=== PATIENT | female | born 1960 | race Caucasian/White ===

== ENCOUNTER 2017-08-29 09:11 | Emergency (ER) | END 2017-08-29 11:13 | disposition home or self-care (01) ==

== ENCOUNTER 2017-10-19 08:53 | Emergency (ER) | END 2017-10-19 12:32 | disposition home or self-care (01) ==

== ENCOUNTER 2017-11-02 12:58 | Emergency (ER) | END 2017-11-02 15:04 | disposition home or self-care (01) ==

== ENCOUNTER 2017-11-03 21:31 | Emergency (ER) | END 2017-11-04 02:05 | disposition home or self-care (01) ==

== ENCOUNTER 2017-11-12 16:19 | Emergency (ER) | END 2017-11-12 22:02 | disposition home or self-care (01) ==

== ENCOUNTER 2017-11-30 08:54 | Emergency (ER) | END 2017-11-30 10:53 | disposition home or self-care (01) ==

== ENCOUNTER 2018-02-19 07:35 | Emergency (ER) | END 2018-02-19 11:03 | disposition home or self-care (01) ==

== ENCOUNTER 2018-04-09 18:57 | Emergency (ER) | payer MEDICAID ==
[~2018-04-09] VITALS: Wt 71.0 kg
[~2018-04-09 18:57] MED LIST: ALBU18HF INHALATION; BECL10.6 IH; BENZ1LOZ52 MM; CYCL10TA7 PO; FAMO-96 PO; GUAI-637 PO; HYDR-4011 PO; IBUP-1542 PO; NAPR-985 PO; NITR-58 PO; ONDA4TAB8 PO
[2018-04-09 19:07] VITALS: BP 156/70; PULSE 90; RESP 18
[2018-04-09] MEDS ORDERED: HYDROCODONE/APAP (5/325) TAB PO ONE (21:00)
--- NOTE | 2018-04-09 21:00 | ERD ---
ER Documentation Chief Complaint Chief Complaint R ARM, SHOULDER PAIN, HEAD PAIN S/P FALL IN SHOWER HPI This is a 57-year-old female with a history of GERD who presents ED with right anterior shoulder pain status post trip and fall in shower earlier today. Patient states that when she slipped in the shower she struck her right shoulder and hit her head. Patient denies any loss of consciousness with this event. Patient admits to mild headache that has been gradual in onset not the worst headache of her life. Patient states that she is not concerned about the heada vadim as it is very mild and is almost resolved. Patient is most concerned about her right shoulder. Patient admits to painful range of motion and decreased range of motion. Denies tingling, numbness, lack sensation, blurry vision, change in vision, confusion, fever, chills and other symptoms. No blood thinner use ROS All systems reviewed and are negative except as per history of present illness. Medications Home Meds Active Scripts Benzocaine/Menthol* (Cepacol* Sore Throat Lozenges) 1 Each Lozenge, 1 EACH MM q2h PRN for SORE THROAT, #20 LOZENGE Prov:HALEIGH TOBAR NP 02/19/18 Guaifenesin* (Robitussin*) 100 Mg/5 Ml Syrup, 200 MG PO Q4H PRN for COUGH, #120 ML Prov:HALEIGH TOBAR NP 02/19/18 Albuterol Sulfate* (Ventolin HFA*) 18 Gm Hfa.aer.ad, 2 PUFF INHALATION Q4H, #1 INHALER Prov:HALEIGH TOBAR NP 02/19/18 Beclomethasone Dipropionate (Qvar Redihaler (40 MCG)) 10.6 Gm Hfa.aeroba, 1 GM I H Q12, #1 INH Prov:HALEIGH TOBAR NP 02/19/18 Hydrocodone/Acetaminophen (Barclay 5-325 Tablet) 1 Each Tablet, 1 TAB PO Q6H PRN for PAIN, #10 TAB Prov:ROSY TANNER DO 11/30/17 Nitrofurantoin Monohyd Macrocr* (Macrobid*) 100 Mg Capsr, 100 MG PO BID for 7 Days, #14 CAP Prov:CALLUM TANG MD 11/14/17 Hydrocodone/Acetaminophen (Barclay 5-325 Tablet) 1 Each Tablet, 1 TAB PO Q6H PRN for PAIN, #10 TAB Prov:MALLORIE HWANG MD 11/12/17 Hydrocodone/Acetaminophen (Barclay 5-325 Tablet) 1 Each Tablet, 1 TAB PO Q6H PRN for PAIN, #10 TAB Prov:PATRIZIA AUSTIN PA-C 11/04/17 Cyclobenzaprine Hcl* (Cyclobenzaprine Hcl*) 10 Mg Tablet, 10 MG PO TID, #15 TAB Prov:HUMBERTO RUDOLPH PA-C 11/02/17 Naproxen* (Naprosyn*) 500 Mg Tablet, 500 MG PO BID PRN for PAIN AND/OR I NFLAMMATION, #30 TAB Prov:HUMBERTO RUDOLPH PA-C 11/02/17 Hydrocodone/Acetaminophen (Barclay 5-325 Tablet) 1 Each Tablet, 1 TAB PO Q6H PRN for PAIN, #7 TAB Prov:HUMBERTO RUDOLPH PA-C 11/02/17 Ondansetron Hcl* (Zofran*) 4 Mg Tablet, 4 MG PO Q8H PRN for NAUSEA AND/OR VOMITING, #30 TAB Prov:NARESH CONROY 10/19/17 Famotidine* (Pepcid*) 20 Mg Tablet, 20 MG PO DAILY for 30 Days, TAB Prov:NICKOLASILANARESH OSORIO F 10/19/17 Hydrocodone/Acetaminophen (Barclay 5-325 Tablet) 1 Each Tablet, 1 TAB PO Q6H PRN for PAIN, #20 TAB Prov:NARESH CONROY 10/19/17 Hydrocodone/Acetaminophen (Barclay 5-325 Tablet) 1 Each Tablet, 1 TAB PO Q6H PRN for PAIN, #12 TAB Prov:LISA BAKER PA-C 08/29/17 Ibuprofen* (Motrin*) 600 Mg Tab, 600 MG PO Q6, #30 TAB Prov:LISA BAKER PA-C 08/29/17 Allergies Allergies: Coded Allergies: No Known Allergy (Unverified , 02/19/18) PMhx/Soc History of Surgery: Yes (Hysterectomy, Bladder SX, Lymphoma SX) Anesthesia Reaction: No Hx Respiratory Disorders: Yes (asthma) Hx Miscellaneous Medical Probl: Yes (LUPUS,INCONTINENCE,LYMPHOMA) Hx Alcohol Use: Yes (occasional) Hx Substance Use: No Hx Tobacco Use: No FmHx Family History: No diabetes Physical Exam Vitals Vital Signs Date Temp Pulse Resp B/P (MAP) Pulse Ox O2 O2 Flow FiO2 Time Delivery Rate 04/09/18 98.7 90 18 156/70 99 19:07 (98) Physical Exam Physical Exam Vitals signs: Reviewed by me. General: Well developed, well nourished, in no acute distress. Patient is awake and alert. Head: Normocephalic, atraumatic. Eyes: Normal conjunctiva, Pupils PERRLA, EOM intact grossly ENT: Pharynx is clear, Moist mucous membranes, external ears, nose and mouth normal Neck: Supple, no masses, lymphadenopathy or JVD Respiratory: Clear to auscultation bilaterally with no wheezing, rhonchi, rales, no distress Cardiovascular: RRR, no murmurs, rubs, or gallops MSK: No edema, no unilateral swelling, 5/5 strength Upper Extremity -right Skin: No laceration, or evidence of external trauma Compartments: Soft Motor: Decreased range of motion with shoulder abduction full active range of motion elbow/wrist/hand Sensation: Intact shoulder/pinky/middle finger/thumb web space Bones: Tender to palpation along right anterior shoulder nontender /elbow/forearm/wrist/hand Snuffbox: Nontender Joints: No effusion Pulses/Perfusion: 2+ radial, Capillary refill < 2 seconds Neurologic: Alert and oriented, moving all extremities, normal speech, no focal weakness, no cerebellar signs. Normal mentation Neuro: M/S: Alert and oriented Face: EOMI, face and pharynx with normal sensation and function Motor: Normal strength throughout Sensation: Normal sensation throughout Speech: Normal Cerebel: Normal coordination Normal gait Normal finger to nose DTR: 2+ and symmetric upper/lower extremities Cranial nerves II through XII intact bilaterally Skin: warm and dry, No rash Psych: Normal mood Results 24 hrs Current Medications Medications Dose Sig/Flower Start Time Status Last (Trade) Ordered Route PRN Stop Time Admin Dose Reason Admin 1 tab ONCE ONCE 04/09/18 DC 04/09/18 Acetaminophen PO 21:00 04/09/18 21:15 / 21:01 Hydrocodone Bitart (Barclay (5/325)) Procedures/MDM EKG, MONITORS, & DIAGNOSTIC IMAGING: [place] [id number] Radiology Main Line: [phone] DIAGNOSTIC IMAGING REPORT Patient: RONDA TYLER : 1960 Age: 57 Sex: F MR #: [id number] DOS: 04/09/182040 Ordering MD: LEI BELL PA-C Location: [facility] Room/Bed: PROCEDURE: XR right shoulder. CLINICAL INDICATION: fall and pain TECHNIQUE: 4 views of the right shoulder were performed. COMPARISON: None. FINDINGS: There is normal osseous mineralization and alignment. No acute fracture or osseous lesion is identified. Minimal degenerative changes of the AC joint. The soft tissues are unremarkable. IMPRESSION: Unremarkable right shoulder. RPTAT:AAJJ Physician Tierney Date Time Electronically viewed and signed by Physician Tierney on 04/09/2018 21:05 RF/ CC: LEI BELL PA-C [id number] ER COURSE: The patient was given Barclay The medication was well tolerated and the patient reports improvement in symptoms. The patient was stable throughout ED course. I kept the patient and/or family informed of laboratory and diagnostic imaging results throughout the emergency room course. The patient was promptly evaluated and a treatment plan was devised based on H&P and other data. This plan was discussed with the patient who agreed and had no further questions or concerns prior to discharge. MEDICAL DECISION MAKIN-year-old female presents ED with right shoulder status post trip and fall in shower earlier today. X-rays unremarkable. This is likely contusion. Advised resting and icing shoulder. History and physical examination other data not consistent with emergent processes including but not limited to fracture, dislocation, tendon rupture, ischemia, neurovascular injury, compartment syndrome, septic joint, avascular necrosis, osteomyelitis, necrotizing fasciitis, septic joint, septic arthritis, or other emergent conditions. Patient also did strike up a fall, admits to mild headache that is almost completely resolved. Normal neuro exam. Per the [place] head CT rule is unnecessary to image patient today. The patient's headache is unlikely related to serious etiology. The patient does not exhibit any clinical signs or symptoms, and has no risk factors to suggest headache etiology such as subarachnoid hemorrhage, acute vertebral or carotid dissection, intracranial mass, epidural, subdural hematoma, dural venous sinus thrombosis, giant cell arteritis, midline shift, or pseudotumor cerebri. Patient's vitals are stable and patient can be managed with close outpatient follow-up. Patient was advised to follow-up with her primary care in the next 48 hours. Return to ED with any worsening symptoms. DISPOSITION PLAN: We discussed follow up with the patient's primary care doctor within 24 to 48 hours. Patient counseled regarding my diagnostic impression and care plan. Prior to discharge all questions answered. Pt agrees with treatment plan and understands strict return precautions. Precautionary instructions provided including instructions to return to the ER if not improving or for any worsening or changing symptoms or concerns. SPECIALIST FOLLOW UP RECOMMENDED: None Patient has been advised to follow up with primary care in 1-2 days. Disclaimer: Inadvertent spelling and grammatical errors are likely due to EHR/dictation software use and do not reflect on the overall quality of patient care. Also, please note that the electronic time recorded on this note does not necessarily reflect the actual time of the patient encounter. Departure Diagnosis: Primary Impression: Injury of right shoulder Encounter type: initial encounter Qualified Codes: S49.91XA - Unspecified injury of right shoulder and upper arm, initial encounter Additional Impression: Fall from ground level Condition: Stable Patient Instructions: R.I.C.E., Shoulder Contusion [facility] Additional Instructions: Paciente aconseja volver a Departamento de urgencias inmediatamente para sntomas nuevos o que empeoran . Paciente aconseja posteriores con el PCP en 1-2 root . Paciente verbaliza la comprehensin y est de acuerdo con el tratamiento y el curso de accin. Si el paciente no tiene ninguna de atencin primaria pueden seguir con [facility] [address] [place] [address] o [facility] [address] [place] [address] LEI BELL PA-C Apr 09, 2018 21:00
[2018-04-09] MEDS ORDERED: IBUP-1542 PO (22:01)
== END 2018-04-09 22:47 | disposition home or self-care (01) ==
LOC: FTE 18:57
DX: S49.91XA Unspecified injury of right shoulder and upper arm, initial encounter (principal); J45.909 Unspecified asthma, uncomplicated; W18.2XXA Fall in (into) shower or empty bathtub, initial encounter; Y92.9 Unspecified place or not applicable
CPT/HCPCS: 73030; Z7502; Z7610

== ENCOUNTER 2018-06-26 14:57 | Emergency (ER) | payer MEDICAID ==
[~2018-06-26] VITALS: Ht 167.6 cm; Wt 66.1 kg
[2018-06-26 15:05] VITALS: Ht 167.6 cm; Wt 66.1 kg
[2018-06-26] MEDS ORDERED: ONDANSETRON 4 MG INJ IV STA (16:29)
[2018-06-26] MEDS ORDERED: morphine 4 MG/ML VIAL IV STA (16:29)
[2018-06-26] MEDS ORDERED: HYDR200T5 PO (17:27)
[2018-06-26] MEDS ORDERED: OMEP20CA16 PO (17:28)
[2018-06-26] MEDS ORDERED: BECL10.6 IH (17:28)
[2018-06-26] MEDS ORDERED: ACET325T45 PO (17:29)
[2018-06-26] MEDS ORDERED: PANT40TA3 PO (18:00)
[2018-06-26] MEDS ORDERED: ACET325T33 PO (18:00)
[2018-06-26] MEDS ORDERED: ONDA4TAB14 PO (18:00)
[2018-06-26 18:31] VITALS: BP 129/77; PULSE 76; RESP 19
--- NOTE | 2018-06-26 19:14 | ERD ---
ER Documentation Chief Complaint Chief Complaint Complains of abdominal pain with vomiting x 3 days HPI Patient is a 57-year-old female with lupus who presents with abdominal pain. She is also had nausea and vomiting. She said the symptoms for a few days. She has pain in the epigastric area and feels like she has a bloated stomach. She has pain with palpation. She has a recent diagnosis of lupus. She has right- sided shoulder pain for over 1 month after a fall. Upon review of old medical records this is the patient's ninth visit to the ER since July 2017. Review of the emergency department information exchange system shows visits to 2 separate emergency departments. ROS All systems reviewed and are negative except as per history of present illness. Medications Home Meds Active Scripts Ondansetron (Ondansetron Odt) 4 Mg Tab.rapdis, 4 MG PO Q6H PRN for NAUSEA AND/OR VOMITING, #10 TAB Prov:ORLANDO CARBAJAL MD 06/26/18 Acetaminophen* (Tylenol*) 325 Mg Tablet, 2 TAB PO Q8 PRN for PAIN AND OR ELEVATED TEMP, #20 TAB Prov:ORLANDO CARBAJAL MD 06/26/18 Pantoprazole* (Protonix*) 40 Mg Tablet., 40 MG PO DAILY, #20 TAB Prov:ORLANDO CARBAJAL MD 06/26/18 Reported Medications Acetaminophen* (Acetaminophen*) 325 Mg Tablet, 325 MG PO Q4H PRN for NEEDED, #30 TAB 06/26/18 Beclomethasone Dipropionate (Qvar Redihaler (40 MCG)) 10.6 Gm Hfa.aeroba, 10.6 GM IH DAILY, INH 06/26/18 Omeprazole* (Omeprazole*) 20 Mg Capsule.dr, 20 MG PO DAILY, #30 CAP 06/26/18 Hydroxychloroquine Sulfate* (Plaquenil*) 200 Mg Tab, 200 MG PO DAILY, TAB 06/26/18 Discontinued Scripts Ibuprofen* (Motrin*) 600 Mg Tab, 600 MG PO Q6, #30 TAB Prov:LEI BELL PA-C 04/09/18 Benzocaine/Menthol* (Cepacol* Sore Throat Lozenges) 1 Each Lozenge, 1 EACH MM q2h PRN for SORE THROAT, #20 LOZENGE Prov:HALEIGH TOBAR MANAGER HRIS 02/19/18 Guaifenesin* (Robitussin*) 100 Mg/5 Ml Syrup, 200 MG PO Q4H PRN for COUGH, #120 ML Prov:HALEIGH TOBAR MANAGER HRIS 02/19/18 Albuterol Sulfate* (Ventolin HFA*) 18 Gm Hfa.aer.ad, 2 PUFF INHALATION Q4H, #1 INHALER Prov:HALEIGH TOBAR NP 02/19/18 Beclomethasone Dipropionate (Qvar Redihaler (40 MCG)) 10.6 Gm Hfa.aeroba, 1 GM IH Q12, #1 INH Prov:HALEIGH TOBAR NP 02/19/18 Hydrocodone/Acetaminophen (Cameron 5-325 Tablet) 1 Each Tablet, 1 TAB PO Q6H PRN for PAIN, #10 TAB Prov:ROSY TANNER DO 11/30/17 Nitrofurantoin Monohyd Macrocr* (Macrobid*) 100 Mg Capsr, 100 MG PO BID for 7 Days, #14 CAP Prov:CALLUM TANG MD 11/14/17 Hydrocodone/Acetaminophen (Cameron 5-325 Tablet) 1 Each Tablet, 1 TAB PO Q6H PRN for PAIN, #10 TAB Prov:MALLORIE HWANG MD 11/12/17 Hydrocodone/Acetaminophen (Cameron 5-325 Tablet) 1 Each Tablet, 1 TAB PO Q6H PRN for PAIN, #10 TAB Prov:PATRIZIA AUSTIN PA-C 11/04/17 Cyclobenzaprine Hcl* (Cyclobenzaprine Hcl*) 10 Mg Tablet, 10 MG PO TID, #15 TAB Prov:HUMBERTO RUDOLPH PA-C 11/02/17 Naproxen* (Naprosyn*) 500 Mg Tablet, 500 MG PO BID PRN for PAIN AND/OR INFLAMMATION, #30 TAB Prov:HUMBERTO RUDOLPH PA-C 11/02/17 Hydrocodone/Acetaminophen (Cameron 5-325 Tablet) 1 Each Tablet, 1 TAB PO Q6H PRN for PAIN, #7 TAB Prov:HUMBERTO RUDOLPH PA-C 11/02/17 Ondansetron Hcl* (Zofran*) 4 Mg Tablet, 4 MG PO Q8H PRN for NAUSEA AND/OR VOMITING, #30 TAB Prov:NARESH CONROY 10/19/17 Famotidine* (Pepcid*) 20 Mg Tablet, 20 MG PO DAILY for 30 Days, TAB Prov:NARESH CONROY 10/19/17 Hydrocodone/Acetaminophen (Cameron 5-325 Tablet) 1 Each Tablet, 1 TAB PO Q6H PRN for PAIN, #20 TAB Prov:NARESH CONROY 10/19/17 Hydrocodone/Acetaminophen (Cameron 5-325 Tablet) 1 Each Tablet, 1 TAB PO Q6H PRN for PAIN, #12 TAB Prov:LISA BAKER PA-C 08/29/17 Ibuprofen* (Motrin*) 600 Mg Tab, 600 MG PO Q6, #30 TAB Prov:LISA BAKER PA-C 08/29/17 Allergies Allergies: Coded Allergies: No Known Allergy (Unverified , 06/26/18) PMhx/Soc History of Surgery: Yes (Hysterectomy, Bladder SX, Lymphoma SX) Anesthesia Reaction: No Hx Respiratory Disorders: Yes (asthma) Hx Miscellaneous Medical Probl: Yes (LUPUS,INCONTINENCE,LYMPHOMA) Hx Alcohol Use: Yes (occasional) Hx Substance Use: No Hx Tobacco Use: No Smoking Status: Never smoker FmHx Family History: diabetes Physical Exam Vitals Vital Signs Date Temp Pulse Resp B/P (MAP) Pulse Ox O2 O2 Flow FiO2 Time Delivery Rate 06/26/18 98.3 76 19 129/77 96 Room Air 18:31 (94) 06/26/18 74 19 127/97 100 Room Air 18:00 (107) 06/26/18 98.3 83 20 138/75 98 15:05 (96) Physical Exam Const: No acute distress Head: Atraumatic Eyes: Normal Conjunctiva ENT: Normal External Ears, Nose and Mouth. Neck: Full range of motion. No meningismus. Resp: Clear to auscultation bilaterally Cardio: Regular rate and rhythm, no murmurs Abd: Soft, epigastric tenderness to palpation without rebound or guarding Skin: No petechiae or rashes Back: No midline or flank tenderness Ext: No cyanosis, or edema Neur: Awake and alert Psych: Normal Mood and Affect Result Diagram: 06/26/18 1645 06/26/18 1645 Results 24 hrs Laboratory Tests Test 06/26/18 16:45 06/26/18 16:50 White Blood Count 8.1 10^3/ul Red Blood Count 5.29 10^6/ul Hemoglobin 14.3 g/dl Hematocrit 43.9 % Mean Corpuscular Volume 83.0 fl Mean Corpuscular Hemoglobin 27.0 pg Mean Corpuscular Hemoglobin Concent 32.6 g/dl Red Cell Distribution Width 13.2 % Platelet Count 346 10^3/UL Mean Platelet Volume 10.0 fl Immature Granulocytes % 0.200 % Neutrophils % 56.7 % Lymphocytes % 33.5 % Monocytes % 6.4 % Eosinophils % 2.8 % Basophils % 0.4 % Nucleated Red Blood Cells % 0.0 /100WBC Immature Granulocytes # 0.020 10^3/ul Neutrophils # 4.6 10^3/ul Lymphocytes # 2.7 10^3/ul Monocytes # 0.5 10^3/ul Eosinophils # 0.2 10^3/ul Basophils # 0.0 10^3/ul Nucleated Red Blood Cells # 0.0 10^3/ul Sodium Level 145 mmol/L Potassium Level 4.5 mmol/L Chloride Level 102 mmol/L Carbon Dioxide Level 28 mmol/L Anion Gap 15 Blood Urea Nitrogen 14 mg/dl Creatinine 0.45 mg/dl Est Glomerular Filtrat Rate mL/min > 60 mL/min Glucose Level 89 mg/dl Calcium Level 9.3 mg/dl Total Bilirubin 0.2 mg/dl Direct Bilirubin 0.00 mg/dl Indirect Bilirubin 0.2 mg/dl Aspartate Amino Transf (AST/SGOT) 35 IU/L Alanine Aminotransferase (ALT/SGPT) 32 IU/L Alkaline Phosphatase 193 IU/L Troponin I < 0.012 ng/ml Total Protein 8.4 g/dl Albumin 4.7 g/dl Globulin 3.70 g/dl Albumin/Globulin Ratio 1.27 Lipase 61 U/L Urine Color YELLOW Urine Clarity CLEAR Urine pH 6.0 Urine Specific [place] 1.020 Urine Ketones NEGATIVE mg/dL Urine Nitrite POSITIVE mg/dL Urine Bilirubin NEGATIVE mg/dL Urine Urobilinogen 1+ mg/dL Urine Leukocyte Esterase NEGATIVE Allyssa/ul Urine Microscopic RBC 4 /HPF Urine Microscopic WBC 4 /HPF Urine Bacteria FEW /HPF Urine Hemoglobin 1+ mg/dL Urine Glucose NEGATIVE mg/dL Urine Total Protein NEGATIVE mg/dl Current Medications Medications Dose Sig/Flower Start Time Status Last (Trade) Ordered Route PRN Stop Time Admin Dose Reason Admin Morphine 4 mg ONCE STAT 06/26/18 DC 06/26/18 Sulfate IV 16:29 16:52 (morphine) 06/26/18 16:30 Ondansetron 4 mg ONCE STAT 06/26/18 DC 06/26/18 HCl (Zofran IV 16:29 16:52 Inj) 06/26/18 16:30 Procedures/MDM Ultrasound of the gallbladder shows no sign of cholecystitis per radiology. EKG read by me: Rate/Rhythm: Regular rate and rhythm at a normal rate Intervals: Normal Impression: No evidence of ischemia or arrhythmia Patient is a 57-year-old female who presents with abdominal pain. Laboratory studies were basically normal. EKG shows no signs of ischemia. Ultrasound shows no cholecystitis. At this point I doubt cholecystitis, pancreatitis, appendicitis, or bowel obstruction. I believe her shoulder pain is from a right shoulder contusion I doubt fracture or dislocation. She said this pain for over 1 month. She can take Tylenol, Protonix, and Zofran for symptom medic relief. She should follow-up with her primary doctor within 24-48 hours for reevaluation. Departure Diagnosis: Primary Impression: Shoulder pain Chronicity: acute Laterality: right Qualified Codes: M25.511 - Pain in right shoulder Additional Impression: Abdominal pain Abdominal location: epigastric Qualified Codes: R10.13 - Epigastric pain Condition: Fair Patient Instructions: Abdominal Pain, Shoulder Pain (Uncertain Cause) Referrals: NELLA GARCIA MD Your doctor Additional Instructions: Llame al doctor MACOLLEEN y cy amada RAMOS PARA DENTRO DE 1-2 MCDONALD.Dgale a la secretaria que nosotros le instruimos hacer esta ramos.Avise o llame si sales condicin se empeora antes de la ramos. Regresa aqui si peor o no mejor. ORLANDO CARBAJAL MD Jun 26, 2018 19:14
== END 2018-06-26 18:45 | disposition home or self-care (01) ==
LOC: E/R 14:57
DX: M25.511 Pain in right shoulder (principal); J45.909 Unspecified asthma, uncomplicated; R11.2 Nausea with vomiting, unspecified
CPT/HCPCS: 36415; 76705; 80053; 81001; 83690; 84484; 85025; 93005; 96374; 96375; J2270; J2405; Z7502

== ENCOUNTER 2018-07-01 18:46 | Emergency (ER) | payer MEDICAID ==
[~2018-07-01] VITALS: Ht 147.3 cm; Wt 68.4 kg
[~2018-07-01 18:46] MED LIST changes: +ACET325T33 PO; +ACET325T45 PO; -ALBU18HF INHALATION; -BENZ1LOZ52 MM; -CYCL10TA7 PO; -FAMO-96 PO; -GUAI-637 PO; -HYDR-4011 PO; +HYDR200T5 PO; -IBUP-1542 PO; -NAPR-985 PO; -NITR-58 PO; +OMEP20CA16 PO; +ONDA4TAB14 PO; -ONDA4TAB8 PO; +PANT40TA3 PO
[2018-07-01 19:19] VITALS: Ht 147.3 cm; Wt 68.4 kg
[2018-07-01] MEDS ORDERED: ONDANSETRON (ODT) 4 MG TAB ODT STA (20:55)
[2018-07-01] MEDS ORDERED: GUAIFENESIN/CODEINE 5ML CUP PO ONE (21:00)
[2018-07-01] MEDS ORDERED: GUAI473L22 PO (22:12)
[2018-07-01] MEDS ORDERED: ALBU18HF INHALATION (22:12)
[2018-07-01] MEDS ORDERED: ONDA4TAB14 PO (22:12)
[2018-07-01] MEDS ORDERED: ACET-141 PO (22:12)
[2018-07-01] MEDS ORDERED: IBUP-1561 PO (22:12)
--- NOTE | 2018-07-01 22:14 | ERD ---
ER Documentation Chief Complaint Chief Complaint S/T, COUGH, PLEURAL PAIN X'S 3 DAYS ROS All systems reviewed and are negative except as per history of present illness. Medications Home Meds Active Scripts Albuterol Sulfate* (Ventolin HFA*) 18 Gm Hfa.aer.ad, 2 PUFF INHALATION Q4H PRN for shortness of breath/cough, #1 INHALER Prov:ROSY TANNER 07/01/18 Ondansetron (Ondansetron Odt) 4 Mg Tab.rapdis, 4 MG PO Q6H PRN for NAUSEA AND/OR VOMITING, #15 TAB Prov:ROSY TANNER 07/01/18 Ibuprofen* (Motrin*) 400 Mg Tab, 400 MG PO Q6H PRN for PAIN AND OR ELEVATED TEMP, #30 TAB Prov:ROSY TANNER 07/01/18 Acetaminophen* (Acetaminophen*) 500 MG Extra Strength Tablet, 500 MG PO Q4H PRN for PAIN AND OR ELEVATED TEMP, #30 TAB Prov:TANNERROSY 07/01/18 Guaifenesin-Codeine Phosphate* (Guaifenesin* AC Cough Syrup) 473 Ml Liquid, 10 ML PO Q4H PRN for COUGH for 7 Days, #1 BOTTLE Prov:ROSY TANNER 07/01/18 Ondansetron (Ondansetron Odt) 4 Mg Tab.rapdis, 4 MG PO Q6H PRN for NAUSEA AND/OR VOMITING, #10 TAB Prov:ORLANDO CARBAJAL MD 06/26/18 Acetaminophen* (Tylenol*) 325 Mg Tablet, 2 TAB PO Q8 PRN for PAIN AND OR ELEVATED TEMP, #20 TAB Prov:ORLANDO CARBAJAL MD 06/26/18 Pantoprazole* (Protonix*) 40 Mg Tablet.dr, 40 MG PO DAILY, #20 TAB Prov:ORLANDO CARBAJAL MD 06/26/18 Reported Medications Acetaminophen* (Acetaminophen*) 325 Mg Tablet, 325 MG PO Q4H PRN for NEEDED, #30 TAB 06/26/18 Beclomethasone Dipropionate (Qvar Redihaler (40 MCG)) 10.6 Gm Hfa.aeroba, 10.6 GM IH DAILY, INH 06/26/18 Omeprazole* (Omeprazole*) 20 Mg Capsule.dr, 20 MG PO DAILY, #30 CAP 06/26/18 Hydroxychloroquine Sulfate* (Plaquenil*) 200 Mg Tab, 200 MG PO DAILY, TAB 06/26/18 Discontinued Scripts Ibuprofen* (Motrin*) 600 Mg Tab, 600 MG PO Q6, #30 TAB Prov:LEI BELL PA-C 04/09/18 Benzocaine/Menthol* (Cepacol* Sore Throat Lozenges) 1 Each Lozenge, 1 EACH MM q2h PRN for SORE THROAT, #20 LOZENGE Prov:HALEIGH TOBAR TENT FINISHER 02/19/18 Guaifenesin* (Robitussin*) 100 Mg/5 Ml Syrup, 200 MG PO Q4H PRN for COUGH, #120 ML Prov:HALEIGH TOBAR TENT FINISHER 02/19/18 Albuterol Sulfate* (Ventolin HFA*) 18 Gm Hfa.aer.ad, 2 PUFF INHALATION Q4H, #1 INHALER Prov:HALEIGH TOBAR TENT FINISHER 02/19/18 Beclomethasone Dipropionate (Qvar Redihaler (40 MCG)) 10.6 Gm Hfa.aeroba, 1 GM IH Q12, #1 INH Prov:HALEIGH TOBAR TENT FINISHER 02/19/18 Hydrocodone/Acetaminophen ([place] 5-325 Tablet) 1 Each Tablet, 1 TAB PO Q6H PRN f or PAIN, #10 TAB Prov:ROSY TANNER DO 11/30/17 Nitrofurantoin Monohyd Macrocr* (Macrobid*) 100 Mg Capsr, 100 MG PO BID for 7 Days, #14 CAP Prov:CALLUM TANG MD 11/14/17 Hydrocodone/Acetaminophen ([place] 5-325 Tablet) 1 Each Tablet, 1 TAB PO Q6H PRN for PAIN, #10 TAB Prov:MALLORIE HWANG MD 11/12/17 Hydrocodone/Acetaminophen ([place] 5-325 Tablet) 1 Each Tablet, 1 TAB PO Q6H PRN for PAIN, #10 TAB Prov:PATRIZIA AUSTIN PA-C 11/04/17 Cyclobenzaprine Hcl* (Cyclobenzaprine Hcl*) 10 Mg Tablet, 10 MG PO TID, #15 TAB Prov:HUMBERTO RUDOLPH PA-C 11/02/17 Naproxen* (Naprosyn*) 500 Mg Tablet, 500 MG PO BID PRN for PAIN AND/OR INFLAMMATION, #30 TAB Prov:HUMBERTO RUDOLPH PA-C 11/02/17 Hydrocodone/Acetaminophen ([place] 5-325 Tablet) 1 Each Tablet, 1 TAB PO Q6H PRN for PAIN, #7 TAB Prov:HUMBERTO RUDOLPH PA-C 11/02/17 Ondansetron Hcl* (Zofran*) 4 Mg Tablet, 4 MG PO Q8H PRN for NAUSEA AND/OR VOMITING, #30 TAB Prov:PASILADEVONNARESH F 10/19/17 Famotidine* (Pepcid*) 20 Mg Tablet, 20 MG PO DAILY for 30 Days, TAB Prov:PASILABANNARESH F 10/19/17 Hydrocodone/Acetaminophen ([place] 5-325 Tablet) 1 Each Tablet, 1 TAB PO Q6H PRN for PAIN, #20 TAB Prov:PASILADEVONNARESH F 10/19/17 Hydrocodone/Acetaminophen ([place] 5-325 Tablet) 1 Each Tablet, 1 TAB PO Q6H PRN for PAIN, #12 TAB Prov:LISA BAKER PA-C 08/29/17 Ibuprofen* (Motrin*) 600 Mg Tab, 600 MG PO Q6, #30 TAB Prov:LISA BAKER PA-C 08/29/17 Allergies Allergies: Coded Allergies: No Known Allergy (Unverified , 06/26/18) PMhx/Soc History of Surgery: Yes (Hysterectomy, Bladder SX, Lymphoma SX) Anesthesia Reaction: No Hx Respiratory Disorders: Yes (asthma) Hx Miscellaneous Medical Probl: Yes (LUPUS,INCONTINENCE,LYMPHOMA) Hx Alcohol Use: Yes (occasional) Hx Substance Use: No Hx Tobacco Use: No Smoking Status: Never smoker Physical Exam Vitals Vital Signs Date Temp Pulse Resp B/P (MAP) Pulse Ox O2 O2 Flow FiO2 Time Delivery Rate 07/01/18 98.2 84 20 138/82 98 19:19 (100) Physical Exam Const: No acute distress Head: Atraumatic Eyes: Normal Conjunctiva ENT: Normal External Ears, Nose and Mouth. Neck: Full range of motion. No meningismus. Resp: Clear to auscultation bilaterally Cardio: Regular rate and rhythm, no murmurs Abd: Soft, non tender, non distended. Normal bowel sounds Skin: No petechiae or rashes Back: No midline or flank tenderness Ext: No cyanosis, or edema Neur: Awake and alert Psych: Normal Mood and Affect Results 24 hrs Current Medications Medications Dose Sig/Flower Start Time Status Last (Trade) Ordered Route PRN Stop Time Admin Dose Reason Admin Ondansetron 4 mg ONCE STAT 07/01/18 DC 07/01/18 HCl (Zofran ODT 20:55 07/01/18 21:03 Odt) 20:59 10 ml ONCE ONCE 07/01/18 DC 07/01/18 Guaifenesin/ PO 21:00 07/01/18 21:03 Codeine 21:01 Phosphate (Robitussin Ac Liquid Cup) Departure Diagnosis: Primary Impression: URI (upper respiratory infection) URI type: unspecified URI Qualified Codes: J06.9 - Acute upper respiratory infection, unspecified Condition: Fair Patient Instructions: Preventing Common Respiratory Infections Referrals: [facility] YOU HAVE RECEIVED A MEDICAL SCREENING EXAM AND THE RESULTS INDICATE THAT YOU DO NOT HAVE A CONDITION THAT REQUIRES URGENT TREATMENT IN THE EMERGENCY DEPARTMENT. FURTHER EVALUATION AND TREATMENT OF YOUR CONDITION CAN WAIT UNTIL YOU ARE SEEN IN YOUR DOCTORS OFFICE WITHIN THE NEXT 1-2 DAYS. IT IS YOUR RESPONSIBILITY TO MAKE AN APPOINTMENT FOR FOLOW-UP CARE. IF YOU HAVE A PRIMARY DOCTOR --you should call your primary doctor and schedule an appointment IF YOU DO NOT HAVE A PRIMARY DOCTOR YOU CAN CALL OUR PHYSICIAN REFERRAL HOTLINE AT IF YOU CAN NOT AFFORD TO SEE A PHYSICIAN YOU CAN CHOSE FROM THE FOLLOWING [facility] [address] [facility]. [facility] [address] [facility] [address] [facility]. [facility] [address] [facility] [address] [facility]. [facility]. [address] Additional Instructions: Llame al doctor MARGARET y cy amada RAMOS PARA DENTRO DE 1-2 MCDONALD.Dgale a la secretaria que nosotros le instruimos hacer esta ramos.Avise o llame si sales condicin se empeora antes de la ramos. Regresa aqui si peor o no mejor. ROSY TANNER DO Jul 01, 2018 22:13
[2018-07-01 22:34] VITALS: BP 133/78; PULSE 77; RESP 20
== END 2018-07-01 22:35 | disposition home or self-care (01) ==
LOC: FTE 18:46
DX: J06.9 Acute upper respiratory infection, unspecified (principal); J45.909 Unspecified asthma, uncomplicated
CPT/HCPCS: Z7502; Z7610; 99283

== ENCOUNTER 2018-09-27 13:20 | Emergency (ER) | payer MEDICAID ==
[~2018-09-27] VITALS: Ht 147.3 cm; Wt 68.2 kg
[~2018-09-27 13:20] MED LIST changes: +ACET-141 PO; +ALBU18HF INHALATION; +GUAI473L22 PO; +IBUP-1561 PO
[2018-09-27 13:32] VITALS: Ht 147.3 cm; Wt 68.2 kg
[2018-09-27] MEDS ORDERED: morphine 4 MG/ML VIAL IV STA (16:58)
[2018-09-27] MEDS ORDERED: ONDANSETRON 4 MG INJ IV STA (16:58)
[2018-09-27] MEDS ORDERED: SOD CHLORIDE 0.9% 1,000 ML IV STA (16:58)
[2018-09-27] MEDS ORDERED: DICYCLOMINE 20 MG INJ IM ONE (17:00)
--- NOTE | 2018-09-27 17:04 | ERD ---
ER Documentation Chief Complaint Chief Complaint Pt bought self to the ED with c/o AP, diarrhea and pelvic pain X 4 days. HPI 58 year old female with a history of lupus presenting with complaints of abdominal pain for the past 5 days. She states that she has had abdominal cramping that has been intermittent, moderate in intensity, associated with nonbloody, watery diarrhea. She has had about 6 bowel movements a day. She has associated nausea but no vomiting. No alleviating or exacerbating factors. She came in today because her pain was getting worse and is now more frequent and persistent. No associated fevers or chills. No recent travel or other exposures. She states that she has had symptoms like this before in the past and thinks that she has been diagnosed with irritable bowel syndrome in the past as well. Her last colonoscopy was about 15 years ago. ROS All systems reviewed and are negative except as per history of present illness. Medications Home Meds Active Scripts Dicyclomine HCl (Dicyclomine HCl) 10 Mg Capsule, 10 MG PO TID PRN for ABDOMINAL CRAMPING, #20 CAP Prov:EVERARDO CARRASQUILLO MD 09/27/18 Loperamide Hcl* (Imodium*) 2 Mg Capsule, 2 MG PO .AFTER EA LOOSE BM PRN for DIARRHEA, #10 TAB Prov:EVERARDO CARRASQUILLO MD 09/27/18 Albuterol Sulfate* (Ventolin HFA*) 18 Gm Hfa.aer.ad, 2 PUFF INHALATION Q4H PRN for shortness of breath/cough, #1 INHALER Prov:ROSY TANNER DO 07/01/18 Ibuprofen* (Motrin*) 400 Mg Tab, 400 MG PO Q6H PRN for PAIN AND OR ELEVATED TEMP, #30 TAB Prov:ROSY TANNER DO 07/01/18 Acetaminophen* (Acetaminophen*) 500 MG Extra Strength Tablet, 500 MG PO Q4H PRN for PAIN AND OR ELEVATED TEMP, #30 TAB Prov:ROSY TANNER DO 07/01/18 Pantoprazole* (Protonix*) 40 Mg Tablet.dr, 40 MG PO DAILY, #20 TAB Prov:ORLANDO CARBAJAL MD 06/26/18 Reported Medications Acetaminophen* (Acetaminophen*) 325 Mg Tablet, 325 MG PO Q4H PRN for NEEDED, #30 TAB 06/26/18 Beclomethasone Dipropionate (Qvar Redihaler (40 MCG)) 10.6 Gm Hfa.aeroba, 10.6 GM IH DAILY, INH 06/26/18 Discontinued Reported Medications Omeprazole* (Omeprazole*) 20 Mg Capsule.dr, 20 MG PO DAILY, #30 CAP 06/26/18 Hydroxychloroquine Sulfate* (Plaquenil*) 200 Mg Tab, 200 MG PO DAILY, TAB 06/26/18 Discontinued Scripts Ondansetron (Ondansetron Odt) 4 Mg Tab.rapdis, 4 MG PO Q6H PRN for NAUSEA AND/OR VOMITING, #15 TAB Prov:CIROROSY 07/01/18 Guaifenesin-Codeine Phosphate* (Guaifenesin* AC Cough Syrup) 473 Ml Liquid, 10 ML PO Q4H PRN for COUGH for 7 Days, #1 BOTTLE Prov:ROSY TANNER DO 07/01/18 Ondansetron (Ondansetron Odt) 4 Mg Tab.rapdis, 4 MG PO Q6H PRN for NAUSEA AND/OR VOMITING, #10 TAB Prov:ORLANDO CARBAJAL MD 06/26/18 Acetaminophen* (Tylenol*) 325 Mg Tablet, 2 TAB PO Q8 PRN for PAIN AND OR ELEVATED TEMP, #20 TAB Prov:ORLANDO CARBAJAL MD 06/26/18 Allergies Allergies: Coded Allergies: No Known Allergy (Unverified , 09/27/18) PMhx/Soc History of Surgery: Yes (Hysterectomy, Bladder SX, Lymphoma SX) Anesthesia Reaction: No Hx Respiratory Disorders: Yes (asthma) Hx Miscellaneous Medical Probl: Yes (LUPUS,INCONTINENCE,LYMPHOMA) Hx Alcohol Use: Yes (occasional) Hx Substance Use: No Hx Tobacco Use: No FmHx Family History: No diabetes Physical Exam Vitals Vital Signs Date Temp Pulse Resp B/P (MAP) Pulse Ox O2 O2 Flow FiO2 Time Delivery Rate 09/27/18 98.9 76 18 140/76 97 13:32 (97) Physical Exam Const: No acute distress Head: Atraumatic Eyes: Normal Conjunctiva ENT: Normal External Ears, Nose and Mouth. Neck: Full range of motion. No meningismus. Resp: Clear to auscultation bilaterally Cardio: Regular rate and rhythm, no murmurs Abd: Soft, mildly distended, tender to deep palpation in the lower quadrants. Hyperactive bowel sounds. No rebound or guarding. No hernias noted Back: No midline or flank tenderness Ext: No cyanosis, or edema Neur: Awake and alert Psych: Normal Mood and Affect Result Diagram: 09/27/18 1742 09/27/18 1742 Results 24 hrs Laboratory Tests Test 09/27/18 17:10 09/27/18 17:42 Urine Color YELLOW Urine Clarity SLIGHTLY CLOUDY Urine pH 6.0 Urine Specific [place] 1.021 Urine Ketones NEGATIVE mg/dL Urine Nitrite POSITIVE mg/dL Urine Bilirubin NEGATIVE mg/dL Urine Urobilinogen NEGATIVE mg/dL Urine Leukocyte Esterase NEGATIVE Allyssa/ul Urine Microscopic RBC 2 /HPF Urine Microscopic WBC 2 /HPF Urine Bacteria FEW /HPF Urine Hemoglobin 1+ mg/dL Urine Glucose NEGATIVE mg/dL Urine Total Protein NEGATIVE mg/dl White Blood Count 8.9 10^3/ul Red Blood Count 4.93 10^6/ul Hemoglobin 13.2 g/dl Hematocrit 40.0 % Mean Corpuscular Volume 81.1 fl Mean Corpuscular Hemoglobin 26.8 pg Mean Corpuscular Hemoglobin Concent 33.0 g/dl Red Cell Distribution Width 13.3 % Platelet Count 331 10^3/UL Mean Platelet Volume 10.0 fl Immature Granulocytes % 0.300 % Neutrophils % 63.0 % Lymphocytes % 27.9 % Monocytes % 5.7 % Eosinophils % 2.7 % Basophils % 0.4 % Nucleated Red Blood Cells % 0.0 /100WBC Immature Granulocytes # 0.030 10^3/ul Neutrophils # 5.6 10^3/ul Lymphocytes # 2.5 10^3/ul Monocytes # 0.5 10^3/ul Eosinophils # 0.2 10^3/ul Basophils # 0.0 10^3/ul Nucleated Red Blood Cells # 0.0 10^3/ul Sodium Level 142 mmol/L Potassium Level 3.5 mmol/L Chloride Level 106 mmol/L Carbon Dioxide Level 27 mmol/L Anion Gap 9 Blood Urea Nitrogen 11 mg/dl Creatinine 0.52 mg/dl Est Glomerular Filtrat Rate mL/min > 60 mL/min Glucose Level 98 mg/dl Calcium Level 9.1 mg/dl Total Bilirubin 0.4 mg/dl Direct Bilirubin 0.00 mg/dl Indirect Bilirubin 0.4 mg/dl Aspartate Amino Transf (AST/SGOT) 22 IU/L Alanine Aminotransferase (ALT/SGPT) 26 IU/L Alkaline Phosphatase 146 IU/L Total Protein 7.8 g/dl Albumin 4.3 g/dl Globulin 3.50 g/dl Albumin/Globulin Ratio 1.22 Current Medications Medications Dose Sig/Flower Start Time Status Last (Trade) Ordered Route PRN Stop Time Admin Dose Reason Admin Sodium 1,000 ml @ Q1H STAT 09/27/18 DC 09/27/18 Chloride 1,000 mls/hr IV 16:58 17:20 09/27/18 17:57 Morphine 4 mg ONCE STAT 09/27/18 DC 09/27/18 Sulfate IV 16:58 17:21 (morphine) 09/27/18 17:01 Ondansetron 4 mg ONCE STAT 09/27/18 DC 09/27/18 HCl (Zofran IV 16:58 17:21 Inj) 09/27/18 17:01 Dicyclomine 20 mg ONCE ONCE 09/27/18 DC 09/27/18 HCl IM 17:00 17:36 (Bentyl) 09/27/18 17:01 Procedures/MDM EMERGENT LABS AND DIAGNOSTIC STUDIES: Lab Results above were reviewed and interpreted by me. CBC: no anemia or evidence of infection CMP: No evidence of clinically significant electrolyte abnormality, acidosis, renal failure, hypoglycemia, liver disease, or biliary obstruction UA: Positive for nitrites, but no symptoms of infection Initial Nursing notes reviewed. Previous Medical Records requested via the Electronic Health Record. EMERGENCY DEPARTMENT COURSE / MEDICAL DECISION MAKING: Patient is presenting with abdominal cramping and associated diarrhea for the past 4 to 5 days. Vitals are unremarkable and she is afebrile. I doubt acute surgical abdomen. Labs did not show any significant abnormalities. Patient was treated with IV fluids, Bentyl, and morphine with improvement of her symptoms. At this point, I have a low suspicion for acute bacterial colitis. Patient does not require antibiotics. She will be discharged with loperamide and Bentyl for her symptoms. Follow-up with PCP was recommended within 2 to 3 days if her diarrhea continues. If she has any worsening symptoms, she was advised to return to the ER immediately. Patient's blood pressure was elevated (>120/80) but appears stable without evidence of hypertensive emergency or urgency. The patient was counseled about the risks of hypertension and urged to pursue outpatient monitoring and therapy within a week with their primary care physician. Departure Diagnosis: Primary Impression: Acute diarrhea Additional Impression: Abdominal pain Abdominal location: lower abdomen, unspecified Qualified Codes: R10.30 - Lower abdominal pain, unspecified Condition: Stable EVERARDO CARRASQUILLO MD Sep 27, 2018 17:04
[2018-09-27] MEDS ORDERED: LOPE2CAP PO (18:33)
[2018-09-27] MEDS ORDERED: DICY10CA40 PO (18:33)
[2018-09-27 18:38] VITALS: BP 105/57; PULSE 69; RESP 18
== END 2018-09-27 18:50 | disposition home or self-care (01) ==
LOC: E/R 13:20
DX: R19.7 Diarrhea, unspecified (principal); R10.30 Lower abdominal pain, unspecified; J45.909 Unspecified asthma, uncomplicated
CPT/HCPCS: 36415; 80053; 81001; 85025; 96374; 96375; J0500; J2270; J2405; J7030; Z7502